=== PATIENT | male | born 1960 | race Caucasian/White ===

== ENCOUNTER 2023-01-31 15:23 | Emergency (ER) | payer OTHER, SELFPAY ==
[2023-01-31 15:24] VITALS: BP 148/79; PULSE 71; RESP 16; TEMP 36.5; O2SAT 99; BMI 22.1
--- NOTE | 2023-01-31 18:52 | ED.WOUNDLAC ---
HPI - Wound/Laceration General Chief Complaint: Wound/Laceration Stated Complaint: cut finger on left hand Time Seen by Provider: 01/31/23 18:39 Source: patient Mode of arrival: Ambulatory Related Data Allergies Allergy/AdvReac Type Severity Reaction Status Date / Time No Known Drug Allergies Allergy Verified 01/31/23 15:28 Review of Systems Musculoskeletal Musculoskeletal: Reports system reviewed and no additional complaints, except as documented Integumentary/Breasts Skin/Breast: Reports system reviewed and no additional complaints, except as documented Neurologic Neurologic: Reports system reviewed and no additional complaints, except as documented Patient History Social History Smoking Status: Never smoker Smoking Status: Never smoker Substance Use Type: does not use Exam Initial Vital Signs Initial Vital Signs: Vital Signs Temperature 97.7 F 01/31/23 15:24 Pulse Rate 71 01/31/23 15:24 Respiratory Rate 16 01/31/23 15:24 Blood Pressure 148/79 H 01/31/23 15:24 Pulse Oximetry 99 01/31/23 15:24 Oxygen Delivery Method Room Air 01/31/23 15:24 Cardio Pulses: radial pulses present on the left Skin Other: 2 cm laceration 2nd digit of the left hand no active bleeding. Neuro Sensory Exam: no sensory deficits noted Extrem Other: 2 cm cut to 2nd digit of left hand. Can flex and extend at the dip PIP and PIP joint. Low suspicion for ligament/tendon injury. Procedures Laceration Repair Laceration 1: Site: other (Second digit) Side (If applicable): left Size (cm): 2 Description: linear Depth: simple, single layer Local Anesthetic: lidocaine 1% Amount of anesthesia used (mL): 4 Pre-repair: wound explored, irrigated extensively and deep structures intact Skin layer closed with: nylon Skin layer suture size: 4-0 Number of sutures: 5 Technique: simple, interrupted Course Orders Ordered: Discontinued Medications Bacitracin (Bacitracin Oint 0.9 Gm Pckt) 1 applic TOP NOW ONE Stop: 01/31/23 18:53 Last Admin: 01/31/23 19:22 Dose: 1 applic Documented By: BRYCE Vital Signs Vital signs: Vital Signs - 8 hr 01/31/23 15:24 Temperature 97.7 F Pulse Rate 71 Respiratory Rate 16 Blood Pressure 148/79 H Pulse Oximetry 99 Oxygen Delivery Method Room Air MDM - Wound/Laceration MDM Narrative Medical decision making narrative: Clean laceration. Low suspicion for deep injury. Low suspicion for fracture. No indication for radiologic studies. Wound was closed as described above. Patient was given care instructions and return precautions. He expressed understanding and agreement. Discharge Plan Departure Patient Disposition: Home Clinical Impression: Laceration Instructions: DI for Laceration Repair Activity Restrictions/Additional Instructions: The stitches do need to be removed in approximately 7 days. Your primary doctor or the walk-in clinic can do this. You can put topical antibiotic ointment over the area. Examples of this are Neosporin or bacitracin. This can be purchased [id number]. You can wash your hands like normal. Return to the emergency department for new symptoms. Stand Alone Forms: Patient Portal/API
[2023-01-31] MEDS: BACITRACIN OINT 0.9 GM PCKT 1 APPLIC TOP (19:22)
== END 2023-01-31 19:23 | disposition home or self-care (01) ==
PROVIDERS: Emergency Provider Emergency Medicine
DX: S61.412A Laceration without foreign body of left hand, initial encounter (principal); W26.0XXA Contact with knife, initial encounter
CPT/HCPCS: 12001; 99283